=== PATIENT | male | born 1940 | race Two or more races ===

== ENCOUNTER 2023-09-12 08:05 | Outpatient (CLI) | payer OTHER | END 2023-09-12 08:14 | disposition home or self-care (01) | LOC: NUCLEAR 08:05 | PROVIDERS: ATTEND Specialist | DX: I11.9 Hypertensive heart disease without heart failure (principal); E78.5 Hyperlipidemia, unspecified; R07.9 Chest pain, unspecified; I25.9 Chronic ischemic heart disease, unspecified | CPT/HCPCS: 78452; 93017; A9500; J0153 ==

== ENCOUNTER 2023-09-22 11:14 | Outpatient (CLI) | payer OTHER | END 2023-09-22 11:26 | disposition home or self-care (01) | LOC: TOM 11:14 | PROVIDERS: ATTEND Specialist | DX: I11.9 Hypertensive heart disease without heart failure (principal); R07.2 Precordial pain ==

== ENCOUNTER 2025-05-27 07:24 | Outpatient (CLI) | payer OTHER | END 2025-05-27 07:27 | disposition home or self-care (01) | LOC: NUCLEAR 07:24 | PROVIDERS: ATTEND Specialist | DX: I11.9 Hypertensive heart disease without heart failure (principal) | CPT/HCPCS: 78452; 93017; A9500; J0153 ==